=== PATIENT | female | born 1985 | race Asian ===

== ENCOUNTER 2019-04-15 06:35 | Inpatient (IN) | payer OTHER ==
[2019-04-15 07:38] VITALS: BMI 29.9
[2019-04-15] MEDS ORDERED: morphine SULFATE/PF 0.5 MG/ML (2cc Syringe - QUVA) EP ONE (07:47)
[2019-04-15] MEDS ORDERED: ONDANSETRON 4 MG/2 ML VIAL IVPUSH PRN (07:47)
[2019-04-15] MEDS ORDERED: ceFAZolin SODIUM 1 GM VIAL ONE (07:54)
[2019-04-15] MEDS ORDERED: CITRIC ACID/SODIUM CITRATE 30 ML UNIT-DOSE CUP PO ONE (09:14)
[2019-04-15] MEDS ORDERED: ELECTROLYTE-148 SOLN 1,000 ML IV SCH (09:15)
--- NOTE | 2019-04-15 09:23 | HP ---
Past Medical History - Admission Chief Complaint: Elective History of Present Illness: 34 yo @ 39 weeks gestation, EDC 04/22/19, admitted for repeat . History Source: Patient Limitations to Obtaining History: No Limitations - Past Medical History ...: 3 ...Para: 2 ...Term: 2 ...: 0 ...Spon : 0 ...Induced : 0 ...Multiple Gestation: 0 ...LMP: 07/22/18 ... Weeks Gestation by Dates: 38.1 ...EDC by Dates: 04/28/19 ...EDC by Sono: 04/22/19 - Past Surgical History Past Surgical History: Yes: Hx Myomectomy: No Hx Transabdominal Cerclage: No - Smoking History Smoking history: Never smoked Have you smoked in the past 12 months: No - Alcohol/Substance Use Hx Alcohol Use: No - Social History Usual Living Arrangement: Yes: With Spouse History of Recent Travel: No Home Medications - Allergies Allergies/Adverse Reactions: Allergies Allergy/AdvReac Type Severity Reaction Status Date / Time No Known Allergies Allergy Verified 04/15/19 07:21 - Home Medications Home Medications: Ambulatory Orders Mv,Calcium,Min/Iron/Folic/Vitk [Essential Woman Tablet] 1 each PO DAILY Vit 93/Iron Fum/Folic [ Formula Tablet] 1 each PO DAILY Vit C/Ascorb Sod/Multivit-Min [Emergen-C 500 mg Chewable Tab] 500 mg PO DAILY Ibuprofen [Motrin -] 600 mg PO QID #28 tablet 04/18/19 Family Medical History Family History: Unremarkable Review of Systems - Review of Systems Constitutional: reports: No Symptoms Eyes: reports: No Symptoms HENT: reports: No Symptoms Neck: reports: No Symptoms Cardiovascular: reports: No Symptoms Respiratory: reports: No Symptoms Gastrointestinal: reports: No Symptoms Genitourinary: reports: No Symptoms Breasts: reports: No Symptoms Reported Musculoskeletal: reports: No Symptoms Integumentary: reports: No Symptoms Neurological: reports: No Symptoms Endocrine: reports: No Symptoms Hematology/Lymphatic: reports: No Symptoms Psychiatric: reports: No Symptoms Pain Intensity: 0 Physical Exam - Maternity Vital Signs: Vital Signs Temperature 98.3 F 04/15/19 07:00 Pulse Rate 79 04/15/19 07:00 Respiratory Rate 18 04/15/19 07:00 Blood Pressure 105/73 04/15/19 07:00 O2 Sat by Pulse Oximetry (%) Constitutional: Yes: Well Nourished Eyes: Yes: Conjunctiva Clear HENT: Yes: Atraumatic Neck: Yes: Supple Cardiovascular: Yes: Regular Rate and Rhythm Lungs: Clear to auscultation - Abdominal Exam/OB Number of Fetuses: Single Presentation: Vertex Contractions: No - Vaginal Exam/OB Vaginal Bleediing: No - Physical Exam Psychiatric: Yes: Alert, Oriented Problem List - Problems (1) History of elective section Problems reviewed: Yes Code(s): Z98.891 - HISTORY OF UTERINE SCAR FROM PREVIOUS SURGERY Assessment/Plan Previous 39 weeks gestation Pre op for repeat Consent signed Anesthesia to see patient
[2019-04-15] MEDS ORDERED: OXYTOCIN 20 UNITS in 0.9% NS 20 UNIT/1,000 ML INFUS.BAG IV ONE ×2 (09:34→11:11)
[2019-04-15] MEDS ORDERED: OXYTOCIN 10 UNITS/ML VIAL ONE (09:39)
[2019-04-15] MEDS ORDERED: IBUPROFEN 800 MG/8 ML IJ IVPB PRN (10:29)
[2019-04-15] MEDS ORDERED: METHYLERGONOVINE MALEATE 0.2 MG/1 ML AMP IM PRN (10:29)
--- NOTE | 2019-04-15 10:33 | OP ---
Operative Note - Note: Operative Date: 04/15/19 Pre-Operative Diagnosis: Elective Operation: Repeat Low Transverse Findings: Large baby boy in ROT position Surgeon: Carolina Dugan System Operator: Cynthia Mccoy Anesthesia: Spinal Specimens Removed: Placenta Estimated Blood Loss (mls): 600
[2019-04-15] MEDS: OXYTOCIN 20 UNITS in 0.9% NS 20 UNIT/1,000 ML INFUS.BAG IV SCH ×2 (11:24→17:56)
[2019-04-16 07:22] LABS: BASO % 0.6 % (0-2.0); EOS % 0.4 % (0-4.5); HEMATOCRIT 34.8 % (32.4-45.2); HEMOGLOBIN 11.6 GM/dL (10.7-15.3); LYMPH % 15.4 % (8-40); MCH 31.5 pg (25.7-33.7); MCHC 33.2 g/dl (32.0-36.0); MEAN CELL VOLUME 94.7 fl (80-96); MEAN PLT VOLUME 9.1 fl (7.5-11.1); MONO % 9.3 % (3.8-10.2); NEUT % 74.3 % (42.8-82.8); PLATELET COUNT 167 K/MM3 (134-434); RBC 3.68 M/mm3 (3.60-5.2); RDW 14.3 % (11.6-15.6); WHITE BLOOD COUNT 12.2 K/mm3 (4.0-10.0)
--- NOTE | 2019-04-16 08:20 | PN ---
Post Progress Note - Subjective Subjective: 34 yo Para3, status post repeat , seen and evaluated. Doing well. Post Day: 1 Type of Delivery: Repeat C/S Vital Signs: Vital Signs Temperature 98.7 F 04/16/19 06:00 Pulse Rate 71 04/16/19 06:00 Respiratory Rate 18 04/16/19 06:00 Blood Pressure 104/60 04/16/19 06:00 O2 Sat by Pulse Oximetry (%) 100 04/15/19 12:40 Breast Exam: Yes: Soft Incision: Yes: Dressing dry and intact Abdomen/GI: Yes: Abdomen soft, Tolerating PO Lochia: Yes: Rubra Lochia, amount: Small Extremities: Yes: Calves non-tender Activity: Ambulating - Labs Labs: CBC WBC 12.2 K/mm3 (4.0-10.0) H 04/16/19 06:50 RBC 3.68 M/mm3 (3.60-5.2) 04/16/19 06:50 Hgb 11.6 GM/dL (10.7-15.3) 04/16/19 06:50 Hct 34.8 % (32.4-45.2) D 04/16/19 06:50 MCV 94.7 fl (80-96) 04/16/19 06:50 MCH 31.5 pg (25.7-33.7) 04/16/19 06:50 MCHC 33.2 g/dl (32.0-36.0) 04/16/19 06:50 RDW 14.3 % (11.6-15.6) 04/16/19 06:50 Plt Count 167 K/MM3 (134-434) 04/16/19 06:50 MPV 9.1 fl (7.5-11.1) 04/16/19 06:50 Absolute Neuts (auto) 9.1 K/mm3 (1.5-8.0) H 04/16/19 06:50 Neutrophils % 74.3 % (42.8-82.8) D 04/16/19 06:50 Lymphocytes % 15.4 % (8-40) D 04/16/19 06:50 Monocytes % 9.3 % (3.8-10.2) 04/16/19 06:50 Eosinophils % 0.4 % (0-4.5) 04/16/19 06:50 Basophils % 0.6 % (0-2.0) 04/16/19 06:50 Nucleated RBC % 0 % (0-0) 04/16/19 06:50 Problem List - Problems (1) History of elective section Problems reviewed: Yes Code(s): Z98.891 - HISTORY OF UTERINE SCAR FROM PREVIOUS SURGERY (2) Status post repeat low transverse section Problems reviewed: Yes Code(s): Z98.891 - HISTORY OF UTERINE SCAR FROM PREVIOUS SURGERY Assessment/Plan Status post repeat Stable Ambulation Analgesia as needed Continue routine care
[2019-04-16] MEDS ORDERED: FLU VACC QS2019-20(6MOS UP)/PF 60 MCG/0.5 ML SYRINGE IM ONE (10:00)
[2019-04-16] MEDS ORDERED: FLU VACCINE QUAD 60 MCG/0.5 ML (MDV 19-20) IM ONE (10:00)
[2019-04-16] MEDS: IBUPROFEN 600 MG TABLET (FP) PO PRN ×3 (10:09→23:21)
[2019-04-16] MEDS ORDERED: BISACODYL 10 MG SUPP.RECT RC PRN (10:29)
[2019-04-16] MEDS: OXYTOCIN 20 UNITS in 0.9% NS 20 UNIT/1,000 ML INFUS.BAG IV SCH (10:30)
--- NOTE | 2019-04-16 11:56 | PN ---
Progress Note, Physician Chief Complaint: s/p c section post op day one History of Present Illness: Under spinal anesthesia with duramorph for post op pain control - Current Medication List Current Medications: Active Medications Bisacodyl (Dulcolax Suppository -) 10 mg RC PRN PRN PRN Reason: CONSTIPATION Diphenhydramine HCl (Benadryl Injection -) 25 mg IVPUSH Q4H PRN PRN Reason: Pruritis Last Admin: 04/16/19 02:35 Dose: 25 mg Parenteral Electrolytes (Plasma-Lyte 148 -) 1,000 mls @ 125 mls/hr IV [facility] Last Admin: 04/15/19 07:00 Dose: 125 mls/hr Oxytocin/Sodium Chloride (Normal Saline+20 Units Oxytocin -) 20 unit in 1,000 mls @ 125 mls/hr IV [facility] Last Admin: 04/15/19 17:56 Dose: 125 mls/hr Ibuprofen (Motrin -) 600 mg PO Q4H PRN PRN Reason: PAIN LEVEL 1 - 3 Last Admin: 04/16/19 10:09 Dose: 600 mg Ibuprofen (Caldolor Injection -) 800 mg IVPB Q8H PRN PRN Reason: PAIN LEVEL 4 - 6 Methylergonovine Maleate (Methergine Injection -) 0.2 mg IM Q4H PRN PRN Reason: Excessive Bleeding (L&D) Ondansetron HCl (Zofran Injection) 4 mg IVPUSH Q4H PRN PRN Reason: NAUSEA Last Admin: 04/15/19 18:03 Dose: 4 mg Simethicone (Mylicon -) 80 mg PO Q4H PRN PRN Reason: GAS - Objective Vital Signs: Vital Signs Temperature 98.7 F 04/16/19 06:00 Pulse Rate 71 04/16/19 06:00 Respiratory Rate 18 04/16/19 06:00 Blood Pressure 104/60 04/16/19 06:00 O2 Sat by Pulse Oximetry (%) 100 04/15/19 12:40 Constitutional: Yes: Well Nourished Cardiovascular: Yes: WNL Respiratory: Yes: WNL Gastrointestinal: Yes: WNL Labs: CBC, BMP 04/16/19 06:50 Assessment/Plan No adverse effects of anesthetic, pain controlled, dept of anesthesia will sign off case at this time
[2019-04-17] MEDS: IBUPROFEN 600 MG TABLET (FP) PO PRN ×4 (08:29→23:57)
[2019-04-17] MEDS: SIMETHICONE 80 MG TAB.CHEW (FP) PO PRN ×2 (12:36→20:21)
--- NOTE | 2019-04-18 06:30 | PN ---
Post Note - Post Date of Delivery: 04/15/19 Post Day: 2 Vital Signs: Vital Signs - 24 hr 04/17/19 04/17/19 08:30 22:00 Temperature 98.5 F 98.0 F Pulse Rate 86 86 Respiratory 18 18 Rate Blood Pressure 104/64 108/50 L - Subjective Subjective: No Complaints, No Nausea or vomiting - Objective Afebrile: Yes Breast: Not engorged Abdomen: Soft, Non-tender, Other (incision intact no drainage) Uterus: Fundus firm Vagina: Scant lochia Extremities: Non-tender - Assessment/Plan (1) Status post repeat low transverse section Assessment: Other (POD 2 SP CS) Plan: Routine Care (DSesires to go home tomorrow)
--- NOTE | 2019-04-18 07:25 | DS ---
Physical Exam-LAMBSKIN TRIMMER Vital Signs: Vital Signs Temperature 98.0 F 04/17/19 22:00 Pulse Rate 86 04/17/19 22:00 Respiratory Rate 18 04/17/19 22:00 Blood Pressure 108/50 L 04/17/19 22:00 O2 Sat by Pulse Oximetry (%) 100 04/15/19 12:40 Constitutional: Yes: Well Nourished, No Distress Respiratory: Yes: WNL Gastrointestinal: Yes: WNL, Soft ....Post : Yes: Uterus firm, Uterus non-tender Breast(s): Yes: WNL Musculoskeletal: Yes: WNL Extremities: Yes: WNL Edema: No Wound/Incision: Yes: Steri Strips, Open to air Neurological: Yes: WNL, Alert, Oriented Psychiatric: Yes: WNL, Alert, Oriented Labs: CBC, BMP 04/16/19 06:50 Delivery - Delivery Type of Anesthesia: Spinal Episiotomy/Laceration: None EBL (cc): 600 Delivery, Single - Stages of Labor Date of Delivery: 04/15/19 Time of Delivery: 09:42 Time Placenta Delivered: 09:43 - Condition of Box Car Washer/Rapid Outsole Stitcher Present: Yes Name: Christin Mcgee Gender: Male Weight: 8 lb 7 oz Position: Right, OT Total Hours ROM (Hrs/Mins): 2mins - 1 Minute Total Score: 9 5 Minutes Total Score: 9 - Feeding Plan Initial Plan: Elected not to breastfeed exclusively throughout hospitalization Discharge Summary Problems reviewed: Yes Reason For Visit: ADMIT C/SECTION Current Active Problems History of elective section (Acute) Status post repeat low transverse section (Acute) Procedures: Principal: Repeat Section Hospital Course: unremarkable Condition: Good - Instructions Diet, Activity, Other Instructions: Physical activity Resume your normal everyday activity as tolerated no heavy lifting or exercise until seen by your surgeon. You may walk unlimited kimberly of and climb stairs. You may resume driving the car when you feel safe and comfortable behind the wheel. No sexual activity as instructed. Wound care If you have a bandage, leave it on, and keep dry for 48-72 hours. After that time discard the outer bandage. If they are tapes on the skin under the out of bandage leave them in place. They will peel off in the next 7 to 10 days. Do Not Peel them off. You may shower the day after surgery. If there are tapes present on the skin, you may shower over them. Diet There are no dietary restrictions. Eat healthy, high-fiber foods. Drink 6 to 8 glasses of liquid each day. This will assist in keeping your bowels are regular. Pain management You may take Tylenol or acetaminophen or Ibuprofen (for example, Motrin, Advil etc.) from my pain prescription medication is ordered should be taken as prescribed for moderate to severe pain. Call MD for any of the following: Severe pain not relieved by medication Fever of 101 or higher Excessive bleeding or drainage on dressing Inability to urinate Referrals: Jovita Diaz MD [Staff Physician] - Disposition: HOME - Home Medications Comprehensive Discharge Medication List: Ambulatory Orders Mv,Calcium,Min/Iron/Folic/Vitk [Essential Woman Tablet] 1 each PO DAILY Vit 93/Iron Fum/Folic [ Formula Tablet] 1 each PO DAILY Vit C/Ascorb Sod/Multivit-Min [Emergen-C 500 mg Chewable Tab] 500 mg PO DAILY
[2019-04-18 08:26] LABS: BASO % 0.6 % (0-2.0); EOS % 2.2 % (0-4.5); HEMATOCRIT 31.4 % (32.4-45.2); HEMOGLOBIN 10.7 GM/dL (10.7-15.3); LYMPH % 26.5 % (8-40); MCH 32.1 pg (25.7-33.7); MCHC 33.9 g/dl (32.0-36.0); MEAN CELL VOLUME 94.9 fl (80-96); MEAN PLT VOLUME 9.3 fl (7.5-11.1); MONO % 8.4 % (3.8-10.2); NEUT % 62.3 % (42.8-82.8); PLATELET COUNT 186 K/MM3 (134-434); RBC 3.31 M/mm3 (3.60-5.2); WHITE BLOOD COUNT 8.3 K/mm3 (4.0-10.0)
[2019-04-18] MEDS: IBUPROFEN 600 MG TABLET (FP) PO PRN (09:32)
[2019-04-18] MEDS: SIMETHICONE 80 MG TAB.CHEW (FP) PO PRN (09:33)
[2019-04-18 15:59] VITALS: BP 110/54; PULSE 98; TEMP 98
--- NOTE | 2019-04-26 16:41 | PATH ---
Surgical Pathology Report Patient Name: LIEN MAHER Med. Rec. #: [id number] /Age/Gender: 1985 (Age: 34) / F Account: [id number] Location: [facility] OBS/ROAD TESTER Taken: 04/15/2019 Received: 04/18/2019 Reported: 04/26/2019 Physicians: Carolina Dugan M.D. Specimen(s) Received PLACENTA Clinical History , 39 weeks, repeat x2 Final Diagnosis PLACENTA, SECTION: 536 G THIRD TRIMESTER PLACENTA WITH TRIVASCULAR UMBILICAL CORD AND UNREMARKABLE PLACENTAL MEMBRANES. Electronically Signed Lien Davenport M.D. Gross Description The specimen is received fresh labeled placenta and is a 536 gram, 20.0 x 17.0 x 2.8 cm. placenta with attached membranes and umbilical cord. The attached membranes are cox, translucent with focal opacities and insert marginally. The umbilical cord measures 46 cm. in length and averages 1 cm. in diameter. The cord inserts eccentrically, 4.5 cm. to the nearest margin. No true knots or strictures are identified. Cut surface of the umbilical cord reveals 3 vessels. The surface is venegas-blue with minimal fibrin deposition and appropriate caliber vessels. The maternal surface is red-brown with focal defects. Sectioning reveals red-brown, spongy parenchyma. No lesions are identified. Special Events Driver sections are submitted in three cassettes as follows: 1- membrane rolls and umbilical cord; 2-3- full thickness sections of placenta. 04/25/2019 [facility]04[facility]
--- NOTE | 2019-04-29 19:00 | OP ---
DATE OF OPERATION: 04/15/2019 PREOPERATIVE DIAGNOSIS: Previous section at 39 weeks' gestation. POSTOPERATIVE DIAGNOSIS: Previous section at 39 weeks' gestation. PROCEDURE: Repeat low transverse section. SURGEON: Carolina Dugan MD LAVATORY ATTENDANT: Cynthia Mccoy MD ANESTHESIA: Spinal. COMPLICATIONS: None. ESTIMATED BLOOD LOSS: 600 mL. DESCRIPTION OF PROCEDURE: Patient was placed to the operating room where spinal anesthesia was administered. Patient was then prepped and draped in proper sterile fashion. A Pfannenstiel skin incision was made and carried down to the underlying layer of fascia. The fascia was incised in the midline and extended laterally. The inferior aspect of the fascial incision was then grasped with a Maria Eugenia clamp, elevated, and the rectus muscles dissected off bluntly. Attention was then turned to the superior aspect of the fascial incision, which in a similar fashion was then grasped with a Maria Eugenia clamp, elevated, and the rectus muscle dissected off bluntly. The rectus muscle was then in the midline. The peritoneum identified and entered sharply with the Metzenbaum scissors. The was then grasped with a pickup and entered sharply with the Metzenbaum scissors. This incision was extended superiorly and inferiorly with good visualization of the bladder. A bladder blade was inserted, and the vesicouterine peritoneum was then grasped with a pickup and entered sharply with the Metzenbaum scissors. This incision was then extended laterally and a bladder flap created digitally. The bladder blade was then reinserted then the lower uterine segment was incised with a 10 blade. This incision was extended laterally and the head delivered atraumatically. Nose and mouth were suctioned and the cord clamped and cut. The infant was handed to the waiting director information. The placenta was removed manually. The uterus exteriorized and cleared of all clot and debris. The uterine incision was repaired using 0 Biosyn in a running, locked fashion. A 2nd layer of the same suture was used as a means to provide excellent hemostasis, and the pelvis was then completely irrigated. The uterus was returned to the abdomen. Then the peritoneum was closed using 2-0 Biosyn, and the fascia was reapproximated using 0 Vicryl in a running fashion. The skin was closed in a subcuticular fashion using 3-0 Vicryl. Patient tolerated procedure well. Patient was then taken to PACU in stable condition. PATHOLOGY: Placenta. Michele CASTILLO/[id number]
== END 2019-04-18 18:00 | disposition home or self-care (01) | DRG 540 ==
LOC: JLDR 06:35 → J3W 12:40
PROVIDERS: ADMIT Obstetrics & Gynecology; ATTEND Obstetrics & Gynecology
PROC: 10D00Z1 Extraction of Products of Conception, Low, Open Approach (ICD-10-PCS; principal; 2019-04-15)
DX: O34.219 Maternal care for unspecified type scar from previous cesarean delivery (principal); Z3A.39 39 weeks gestation of pregnancy; Z37.0 Single live birth
CPT/HCPCS: 36415; 85025; 86850; 86900; 86901; 88307-TC; 90686; G0008